=== PATIENT | female | born 1965 | race Hispanic/Latino ===

== ENCOUNTER 2017-12-12 16:50 | Emergency (ER) | payer OTHER ==
[~2017-12-12 16:50] MED LIST: ALBU0.63 IH; ALBUHFA IH; FISH1CAP50 PO; GLUC-172 PO; IRON150C5 PO; MULT-1267 PO; PARO-37 PO; VITA1CAP PO
[2017-12-12 17:16] LABS: BASOPHILS % (AUTO) 0.8 % (0.0-5.0); LYMPHOCYTES % (AUTO) 39.3 % (21.0-51.0); MEAN CORPUSCULAR HEMOGLOBIN 22.8 pg (27.0-33.0); MEAN CORPUSCULAR VOLUME 69.2 fL (79-99); MONOCYTES % (AUTO) 7.3 % (3.0-13.0); NEUTROPHILS % (AUTO) 51.6 % (40.0-77.0); NUCLEATED RED BLOOD CELLS 0.1 % (0.0-0.19); PLATELET COUNT (AUTO) 252 K/uL (130-400); RED BLOOD CELL COUNT(AUTO) 4.18 MIL/uL (4.00-5.50); RED CELL DISTRIBUTION WIDTH 18.9 % (11.0-15.5); WHITE BLOOD COUNT (AUTO) 5.9 K/uL (4.8-10.8)
[2017-12-12 17:25] LABS: APPEARANCE,URINE Clear (CLEAR); BILIRUBIN,URINE Negative (NEGATIVE); COLOR,URINE Yellow (YELLOW); GLUCOSE, URINE (UA) TRACE mg/dL (NEGATIVE); KETONES,URINE Negative (NEGATIVE); LEUKOCYTE ESTERASE ,URINE Negative (NEGATIVE); NITRATE,URINE Negative (NEGATIVE); OCCULT BLOOD,URINE Negative (NEGATIVE); PH,URINE 6.5 (5.0-8.0); PROTEIN,URINE Negative (NEGATIVE)
[2017-12-12 17:30] LABS: CREATININE 0.7 mg/dL (0.5-1.5); POTASSIUM 3.6 mmol/L (3.5-5.1)
[2017-12-12 17:34] LABS: ALBUMIN 3.6 g/dL (3.5-5.0); BILIRUBIN,TOTAL 0.3 mg/dL (0.2-1.0); TOTAL PROTEIN, SERUM 7.4 g/dL (6.0-8.3)
[2017-12-12 17:56] LABS: BACTERIA,URINE Rare /HPF (None Seen); RBC,URINE None Seen /HPF (0-1); WBC,URINE 0-1 /HPF (0-1)
[2017-12-12] MEDS ORDERED: MECLIZINE HCL 25 MG TABLET ONE (18:11)
[2017-12-12] MEDS ORDERED: DiphenhydrAMINE HCL 25 MG/10 ML ELIXIR UDCUP ONE (18:12)
== END 2017-12-12 20:59 | disposition home or self-care (01) ==
LOC: EDH 16:50
DX: R42 Dizziness and giddiness (principal); R53.1 Weakness; J45.909 Unspecified asthma, uncomplicated; Z88.6 Allergy status to analgesic agent
CPT/HCPCS: 36415; 70450; 80053; 81001; 84443; 85025; 93005

== ENCOUNTER 2019-11-10 11:37 | Emergency (ER) | payer OTHER ==
[2019-11-10] MEDS ORDERED: KETOROLAC TROMETHAMINE 60 MG/2 ML VIAL ONE (12:41)
[2019-11-12] MEDS ORDERED: PANT40TA PO (16:31)
== END 2019-11-10 14:09 | disposition home or self-care (01) ==
LOC: EDH 11:37
DX: S16.1XXA Strain of muscle, fascia and tendon at neck level, initial encounter (principal); M25.561 Pain in right knee; R51 Headache; M54.6 Pain in thoracic spine; M19.90 Unspecified osteoarthritis, unspecified site; J45.909 Unspecified asthma, uncomplicated; Z88.6 Allergy status to analgesic agent; Z88.1 Allergy status to other antibiotic agents; Z87.891 Personal history of nicotine dependence; Z98.51 Tubal ligation status; V49.29XA Unspecified car occupant injured in collision with other motor vehicles in nontraffic accident, initial encounter; Y93.89 Activity, other specified; Y92.89 Other specified places as the place of occurrence of the external cause; Y99.8 Other external cause status
CPT/HCPCS: 70450; 72125; 72128; 72131; 73562; 82948; 96372; 99284; J1885

== ENCOUNTER 2019-11-13 06:50 | Day surgery (SDC) | payer OTHER ==
[2019-11-12 16:02] LABS: BASOPHILS % (AUTO) 0.6 % (0.0-5.0); EOSINOPHILS % (AUTO) 1.7 % (0.0-8.0); HEMATOCRIT 36.1 % (36-48); LYMPHOCYTES % (AUTO) 40.8 % (21.0-51.0); MEAN CORPUSCULAR HEMOGLOBIN 23.8 pg (27.0-33.0); MEAN CORPUSCULAR HGB CONC 30.5 g/dL (32.0-36.0); MEAN CORPUSCULAR VOLUME 78.1 fL (79-99); MONOCYTES % (AUTO) 5.1 % (3.0-13.0); NEUTROPHILS % (AUTO) 51.6 % (40.0-77.0); PLATELET COUNT (AUTO) 282 K/uL (130-400); RED BLOOD CELL COUNT(AUTO) 4.62 MIL/uL (4.00-5.50); WHITE BLOOD COUNT (AUTO) 6.4 K/uL (4.8-10.8)
[2019-11-12 16:03] VITALS: BP 125/73
[2019-11-12 16:16] LABS: ALBUMIN 3.7 g/dL (3.5-5.0); BILIRUBIN,TOTAL 0.3 mg/dL (0.2-1.0); CREATININE 0.7 mg/dL (0.5-1.5); POTASSIUM 4.9 mmol/L (3.5-5.1); TOTAL PROTEIN, SERUM 7.7 g/dL (6.0-8.3)
[~2019-11-13] VITALS: Ht 162.6 cm; Wt 70.1 kg
[2019-11-13] VITALS (14 sets, daily range): BP systolic 108–135; BP diastolic 60–81
[~2019-11-13 06:50] MED LIST changes: -FISH1CAP50 PO; -GLUC-172 PO; -IRON150C5 PO; -MULT-1267 PO; +PANT40TA PO; -PARO-37 PO; -VITA1CAP PO
[2019-11-13] MEDS ORDERED: LACTATED RINGERS 1000ML 1,000 ML IV ONE (07:26)
[2019-11-13] MEDS ORDERED: LIDOCAINE PF 2% 5ML ABBOJECT ONE (07:31)
[2019-11-13] MEDS ORDERED: PROPOFOL 10 MG/ML 20ML VIAL IV ONE (07:31)
[2019-11-13] MEDS ORDERED: FENTANYL CITRATE PF 50 MCG/1 ML 2ML VIAL ONE ×2 (07:32→09:19)
[2019-11-13] MEDS ORDERED: MIDAZOLAM HCL 1 MG/ML 2ML VIAL ONE (07:34)
[2019-11-13] MEDS ORDERED: [UNRECOGNIZED DRUG - OTHER] PO (07:46)
[2019-11-13] MEDS ORDERED: MULT-1267 PO (07:46)
[2019-11-13] MEDS ORDERED: ONDANSETRON HCL 4 MG/2 ML VIAL ONE (09:00)
[2019-11-13] MEDS ORDERED: KETOROLAC TROMETHAMINE 30MG/ML ONE (09:00)
--- NOTE | 2019-11-13 10:05 | NUR ---
ASSESSMENT RECEIVED PT FROM PACU NURSE HERRERA MELCHOR. PT AAOX3. DENIES ANY PAIN AT THIS TIME. BOYFRIEND AT BEDSIDE.
--- NOTE | 2019-11-13 11:00 | NUR ---
DISCHARGE ORAL AND WRITTEN DISCHARGE INSTRUCTIONS GIVEN TO PT AND PTS BOYFRIEND. CALLED OFFICE TO VERIFY PAIN MEDICATION CALLED IN TO [facility]. OFFICE PERSONNEL STATES PRESCRIPTION WAS CALLED IN PT AND BOYFRIEND VERBALIZED UNDERSTANDING.
== END 2019-11-13 11:05 | disposition home or self-care (01) ==
LOC: DAH 06:50
PROVIDERS: ATTEND Obstetrics & Gynecology
DX: R93.89 Abnormal findings on diagnostic imaging of other specified body structures (principal); N84.0 Polyp of corpus uteri; K21.9 Gastro-esophageal reflux disease without esophagitis; J45.909 Unspecified asthma, uncomplicated; F41.9 Anxiety disorder, unspecified; Z88.1 Allergy status to other antibiotic agents; Z88.5 Allergy status to narcotic agent; Z88.8 Allergy status to other drugs, medicaments and biological substances; Z79.899 Other long term (current) drug therapy; Z90.49 Acquired absence of other specified parts of digestive tract; Z98.890 Other specified postprocedural states
CPT/HCPCS: 36415; 58558; 80053; 82948 ×2; 85025; 88305; A4215; A4221; A4222; A4223; A4351; A4355; A4663; J2001; J2250; J2405; J2704; J3010 ×2; J7030; J7120; J1885

== ENCOUNTER 2020-12-09 20:21 | Emergency (ER) | payer OTHER ==
[~2020-12-09 20:21] MED LIST changes: -ALBU0.63 IH; +MULT-1267 PO; +[UNRECOGNIZED DRUG - OTHER] PO
== END 2020-12-09 23:17 | disposition home or self-care (01) ==
LOC: EDH 20:21
DX: S16.1XXA Strain of muscle, fascia and tendon at neck level, initial encounter (principal); F41.1 Generalized anxiety disorder; J45.909 Unspecified asthma, uncomplicated; M19.90 Unspecified osteoarthritis, unspecified site; Z90.49 Acquired absence of other specified parts of digestive tract; Z88.1 Allergy status to other antibiotic agents; Z88.5 Allergy status to narcotic agent; Z88.6 Allergy status to analgesic agent; V49.49XA Driver injured in collision with other motor vehicles in traffic accident, initial encounter; Y93.89 Activity, other specified; Y92.488 Other paved roadways as the place of occurrence of the external cause; Y99.8 Other external cause status
CPT/HCPCS: 70450; 71045; 72125; 93005

== ENCOUNTER 2020-12-31 17:14 | Observation (INO) | payer OTHER ==
[~2020-12-31] VITALS: Ht 157.5 cm; Wt 65.0 kg
[2020-12-31 17:30] LABS: BASOPHILS % (AUTO) 0.4 % (0.0-5.0); EOSINOPHILS % (AUTO) 1.3 % (0.0-8.0); HEMATOCRIT 37.5 % (36-48); LYMPHOCYTES % (AUTO) 44.9 % (21.0-51.0); MEAN CORPUSCULAR HEMOGLOBIN 25.8 pg (27.0-33.0); MEAN CORPUSCULAR HGB CONC 31.5 g/dL (32.0-36.0); MEAN CORPUSCULAR VOLUME 82.1 fL (79-99); MONOCYTES % (AUTO) 4.4 % (3.0-13.0); NEUTROPHILS % (AUTO) 48.9 % (40.0-77.0); PLATELET COUNT (AUTO) 275 K/uL (130-400); RED BLOOD CELL COUNT(AUTO) 4.57 MIL/uL (4.00-5.50); RED CELL DISTRIBUTION WIDTH 15.3 % (11.0-15.5); WHITE BLOOD COUNT (AUTO) 7.1 K/uL (4.8-10.8)
[2020-12-31 17:41] LABS: POTASSIUM 3.5 mmol/L (3.5-5.1)
[2020-12-31 17:43] LABS: INR 0.97 (0.85-1.15); PROTHROMBIN TIME 10.6 SEC (9.6-11.6)
[2020-12-31 17:44] LABS: PARTIAL THROMBOPLASTIN TIME 23.7 SEC (26.3-35.5)
[2020-12-31 17:45] LABS: ALBUMIN 3.9 g/dL (3.5-5.0); BILIRUBIN,TOTAL 0.7 mg/dL (0.2-1.0); TOTAL PROTEIN, SERUM 7.9 g/dL (6.0-8.3)
[2020-12-31] MEDS ORDERED: ACETAMINOPHEN EXTRA STRENGTH 500 MG TABLET ONE (19:05)
[2020-12-31] MEDS ORDERED: NITROGLYCERIN 1GM/1 INCH PACKET TD ONE (19:05)
[2020-12-31] MEDS ORDERED: REGADENOSON 0.4 MG/5 ML PF SYG IVP SCH (20:15)
[2020-12-31] MEDS: SODIUM CHLORIDE 0.9% 1000ML 1,000 ML IV SCH (20:15)
[2021-01-01] VITALS: BP 108/69
[2021-01-01 00:25] LABS: CREATINE KINASE, TOTAL 71 U/L (21-232); MYOGLOBIN 30 ng/mL (10-92); TROPONIN I < 0.04 ng/mL (0.00-0.06)
[2021-01-01 04:00] VITALS: BP_SYST 108; BP_SYST 98; BP_DIAS 59; BP_DIAS 69
[2021-01-01 06:46] LABS: CREATINE KINASE, TOTAL 62 U/L (21-232); MYOGLOBIN 36 ng/mL (10-92); TROPONIN I < 0.04 ng/mL (0.00-0.06)
[2021-01-01] MEDS ORDERED: REGADENOSON 0.4 MG/5 ML PF SYG IVP SCH (11:00)
[2021-01-01 11:44] VITALS: BP 120/80
[2021-01-01] MEDS: PANTOPRAZOLE SODIUM 40 MG TABLET.DR PO SCH (14:55)
[2021-01-01] MEDS: ASPIRIN 325 MG TABLET PO SCH (14:55)
[2021-01-01] MEDS: SODIUM CHLORIDE 0.9% 1000ML 1,000 ML IV SCH ×2 (14:56→22:55)
[2021-01-01 15:57] LABS: CREATINE KINASE, TOTAL 66 U/L (21-232); MYOGLOBIN 29 ng/mL (10-92); TROPONIN I < 0.04 ng/mL (0.00-0.06)
[2021-01-01 16:00] VITALS: BP 119/71
[2021-01-01 19:20] VITALS: BP 108/64
[2021-01-01 23:45] VITALS: BP 96/57
[2021-01-02 03:46] VITALS: BP 95/55
[2021-01-02 07:54] VITALS: BP 108/63
[2021-01-02] MEDS: ASPIRIN 325 MG TABLET PO SCH (08:49)
[2021-01-02] MEDS: PANTOPRAZOLE SODIUM 40 MG TABLET.DR PO SCH (08:50)
[2021-01-02 11:07] VITALS: BP 107/60
== END 2021-01-02 12:09 | disposition home or self-care (01) ==
LOC: EDH 17:14 → EDHIP 19:25 → INTOOBSV 19:25 → 4BH 01-01 00:09
PROVIDERS: ADMIT Family Medicine; ATTEND Family Medicine
DX: R07.89 Other chest pain (principal); K29.70 Gastritis, unspecified, without bleeding; R42 Dizziness and giddiness; J45.909 Unspecified asthma, uncomplicated; M19.90 Unspecified osteoarthritis, unspecified site; Z90.49 Acquired absence of other specified parts of digestive tract; Z98.51 Tubal ligation status; Z79.899 Other long term (current) drug therapy; Z88.5 Allergy status to narcotic agent; Z88.1 Allergy status to other antibiotic agents; Z88.6 Allergy status to analgesic agent
CPT/HCPCS: 36415 ×2; 71045; 78452; 80053; 82550 ×4; 82948; 83874 ×3; 83880; 84484 ×4; 85025; 85378; 85610; 85730; 93005 ×3; 93017; 93306; 93356; 96360; 96361 ×3; 99285; A9500 ×2; G0378 ×37; J2785; 96374

== ENCOUNTER 2021-06-27 10:57 | Emergency (ER) | payer OTHER ==
[~2021-06-27] VITALS: Ht 157.5 cm; Wt 65.8 kg
[2021-06-27 11:39] VITALS: BP 125/74
[2021-06-27 11:47] LABS: BASOPHILS % (AUTO) 0.5 % (0.0-5.0); EOSINOPHILS % (AUTO) 1.3 % (0.0-8.0); HEMATOCRIT 38.6 % (36-48); LYMPHOCYTES % (AUTO) 45.5 % (21.0-51.0); MEAN CORPUSCULAR HEMOGLOBIN 25.9 pg (27.0-33.0); MEAN CORPUSCULAR HGB CONC 32.1 g/dL (32.0-36.0); MEAN CORPUSCULAR VOLUME 80.8 fL (79-99); MONOCYTES % (AUTO) 6.6 % (3.0-13.0); NEUTROPHILS % (AUTO) 46.1 % (40.0-77.0); PLATELET COUNT (AUTO) 239 K/uL (130-400); RED BLOOD CELL COUNT(AUTO) 4.78 MIL/uL (4.00-5.50); RED CELL DISTRIBUTION WIDTH 15.6 % (11.0-15.5); WHITE BLOOD COUNT (AUTO) 3.8 K/uL (4.8-10.8)
[2021-06-27 11:54] LABS: CARBON DIOXIDE 29 mmol/L (21-32); CHLORIDE 105 mmol/L (101-111); CREATININE 0.7 mg/dL (0.5-1.5); GLOMERULAR FILTR. RATE CALC 92 mL/min (>60); GLUCOSE,RANDOM 104 mg/dL (70-105); POTASSIUM 3.8 mmol/L (3.5-5.1); SODIUM SERUM 143 mmol/L (136-145); UREA NITROGEN, BLOOD 17 mg/dL (7-18)
[2021-06-27 11:59] LABS: ALANINE AMINOTRANSFERASE 27 U/L (12-78); ALBUMIN 3.7 g/dL (3.5-5.0); ASPARTATE AMINOTRANSFERASE 18 U/L (10-37); BILIRUBIN,TOTAL 0.5 mg/dL (0.2-1.0); CREATINE KINASE, TOTAL 95 U/L (21-232); TOTAL PROTEIN, SERUM 7.4 g/dL (6.0-8.3)
[2021-06-27] MEDS ORDERED: FAMOTIDINE 20MG TAB PO ONE (12:00)
[2021-06-27] MEDS ORDERED: LORAZEPAM 2 MG/ML 1 ML VIAL IVP ONE (12:00)
[2021-06-27 12:01] LABS: B-TYPE NATRIURETIC PEPTIDE 15 pg/mL (0-100)
[2021-06-27 12:02] LABS: CRP QUANTITATIVE < 2.00 mg/L (0.00-9.0)
[2021-06-27 12:15] LABS: INR 0.96 (0.85-1.15); PROTHROMBIN TIME 10.5 SEC (9.6-11.6)
[2021-06-27 13:07] LABS: ERYTHROCYTE SEDIMENTATION RATE 12 MM/HR (0-30)
[2021-06-27 14:13] VITALS: BP 105/70
== END 2021-06-27 15:47 | disposition home or self-care (01) ==
LOC: EDH 10:57
DX: R07.89 Other chest pain (principal); R06.00 Dyspnea, unspecified; F41.9 Anxiety disorder, unspecified; R03.0 Elevated blood-pressure reading, without diagnosis of hypertension; Z20.822 Contact with and (suspected) exposure to COVID-19; J45.909 Unspecified asthma, uncomplicated; Z88.1 Allergy status to other antibiotic agents; Z88.5 Allergy status to narcotic agent; Z88.6 Allergy status to analgesic agent; Z79.899 Other long term (current) drug therapy
CPT/HCPCS: 36415; 71045; 80053; 82550; 83880; 84484; 85025; 85378; 85610; 85651; 85730; 86140; 87635; 93005; 99285; C9803; J2060

== ENCOUNTER 2021-10-22 18:03 | Emergency (ER) | payer OTHER ==
[~2021-10-22] VITALS: Ht 157.5 cm; Wt 59.0 kg
[2021-10-22 18:05] VITALS: BP 128/82
[2021-10-22] MEDS ORDERED: DEXAMETHASONE SOD PHOSPHATE 4 MG/ML 1ML VIAL IM SCH (20:30)
[2021-10-22] MEDS ORDERED: BROM237S PO (20:43)
[2021-10-22] MEDS ORDERED: ACET-3194 PO (20:43)
[2021-10-22] MEDS ORDERED: PSEU120T62 PO (20:43)
[2021-10-22] MEDS ORDERED: AZIT250T9 PO (20:43)
== END 2021-10-22 20:58 | disposition home or self-care (01) ==
LOC: EDH 18:03
DX: J02.9 Acute pharyngitis, unspecified (principal); R05.9 Cough, unspecified; H92.03 Otalgia, bilateral; J45.909 Unspecified asthma, uncomplicated; Z20.822 Contact with and (suspected) exposure to COVID-19; Z90.49 Acquired absence of other specified parts of digestive tract; Z88.1 Allergy status to other antibiotic agents; Z88.5 Allergy status to narcotic agent; Z88.8 Allergy status to other drugs, medicaments and biological substances; Z79.899 Other long term (current) drug therapy
CPT/HCPCS: 87635; 87804 ×2; 96372; 99283; C9803; J1100

== ENCOUNTER 2023-04-08 10:12 | Emergency (ER) | payer OTHER ==
[~2023-04-08] VITALS: Ht 157.5 cm; Wt 66.2 kg
[~2023-04-08 10:12] MED LIST changes: +ACET-3194 PO; +AZIT250T9 PO; +BROM237S PO; +PSEU120T62 PO
[2023-04-08 10:46] LABS: BASOPHILS % (AUTO) 0.5 % (0.0-5.0); EOSINOPHILS % (AUTO) 1.4 % (0.0-8.0); HEMATOCRIT 38.7 % (36-48); LYMPHOCYTES % (AUTO) 37.5 % (21.0-51.0); MEAN CORPUSCULAR HEMOGLOBIN 26.7 pg (27.0-33.0); MEAN CORPUSCULAR VOLUME 83.4 fL (79-99); MONOCYTES % (AUTO) 4.8 % (3.0-13.0); NEUTROPHILS % (AUTO) 55.5 % (40.0-77.0); PLATELET COUNT (AUTO) 249 K/uL (130-400); RED BLOOD CELL COUNT(AUTO) 4.64 MIL/uL (4.00-5.50); RED CELL DISTRIBUTION WIDTH 14.8 % (11.0-15.5); WHITE BLOOD COUNT (AUTO) 5.8 K/uL (4.8-10.8)
[2023-04-08 12:36] LABS: ALBUMIN 3.7 g/dL (3.5-5.0); CREATININE 0.7 mg/dL (0.5-1.5); POTASSIUM 3.7 mmol/L (3.5-5.1); TOTAL PROTEIN, SERUM 7.2 g/dL (6.0-8.3)
[2023-04-08 13:30] LABS: APPEARANCE,URINE CLEAR (CLEAR); BILIRUBIN,URINE NEGATIVE (NEGATIVE); COLOR,URINE COLORLESS (YELLOW); GLUCOSE, URINE (UA) NEGATIVE (NEGATIVE); KETONES,URINE NEGATIVE (NEGATIVE); LEUKOCYTE ESTERASE ,URINE 25 Leu/uL (NEGATIVE); NITRATE,URINE NEGATIVE (NEGATIVE); OCCULT BLOOD,URINE NEGATIVE (NEGATIVE); PH,URINE 6.5 (5.0-8.0); PROTEIN,URINE NEGATIVE (NEGATIVE); UROBILINOGEN,URINE 0.2 mg/dL (0.2-1.0)
[2023-04-08] MEDS ORDERED: IOHEXOL-350 50ML VIAL IV ONE (13:31)
[2023-04-08 13:48] LABS: RBC,URINE 0-1 /HPF (0-1); WBC,URINE 0-1 /HPF (0-1)
[2023-04-08] MEDS ORDERED: ACETAMINOPHEN 500 MG TABLET PO ONE (15:00)
[2023-04-08 16:52] VITALS: BP 98/55
== END 2023-04-08 17:20 | disposition home or self-care (01) ==
LOC: EDH 10:12
DX: M62.830 Muscle spasm of back (principal); J45.909 Unspecified asthma, uncomplicated; E03.9 Hypothyroidism, unspecified; F41.9 Anxiety disorder, unspecified; M19.90 Unspecified osteoarthritis, unspecified site; K21.9 Gastro-esophageal reflux disease without esophagitis; Z88.5 Allergy status to narcotic agent; Z88.1 Allergy status to other antibiotic agents; Z88.8 Allergy status to other drugs, medicaments and biological substances; Z79.899 Other long term (current) drug therapy; Z90.89 Acquired absence of other organs; Z90.49 Acquired absence of other specified parts of digestive tract
CPT/HCPCS: 99285; 71260; 71045; 83735; 84484; 80053; 85025; 85378; 81001; 36415; 93005; Q9967